=== PATIENT | female | born 1990 | race Caucasian/White ===

== ENCOUNTER 2017-05-15 14:13 | Emergency (ER) | payer OTHER ==
[~2017-05-15] VITALS: Ht 162.6 cm; Wt 59.0 kg
[2017-05-15 16:19] VITALS: BP 114/69
== END 2017-05-15 17:01 | disposition left against medical advice (07) ==
LOC: ER 14:13
DX: T74.21XA Adult sexual abuse, confirmed, initial encounter (principal); Z88.0 Allergy status to penicillin; Y07.9 Unspecified perpetrator of maltreatment and neglect; F10.99 Alcohol use, unspecified with unspecified alcohol-induced disorder; F14.10 Cocaine abuse, uncomplicated